=== PATIENT | male | born 1960 | race Caucasian/White ===

== ENCOUNTER → 2019-01-20 09:29 | Outpatient (CLI) | payer OTHER, SELFPAY ==
--- NOTE | 2019-01-20 09:33 | DI.RAD.S_ITS ---
PROCEDURE: XR FINGER RT MIN 2V INDICATIONS: finger injury TECHNIQUE: AP hand, 2 views of the second finger(s) acquired. COMPARISON: [facility], , HAND 3V RIGHT, 07/25/2011, 10:26. FINDINGS: Bones: No fractures or dislocations. No suspicious bony lesions. Background osteoarthritic changes. Soft tissues: No suspicious soft tissue calcifications. IMPRESSION: No acute fracture. No osseous lesion. If clinical suspicion and/or symptoms persist, further assessment with repeat plain films, or advanced imaging (e.g., CT, MRI, or bone scan) may be helpful for further assessment. Dictated by: Diego Little [facility] Interpreted: Carlie Alejandre MD on 01/20/2019 at 10:29 Approved by: Carlie Alejandre M.D. on 01/20/2019 at 14:45
== END ==
PROVIDERS: PCP Internal Medicine; Visit Provider Hospitalist
DX: S69.91XA Unspecified injury of right wrist, hand and finger(s), initial encounter (principal); X58.XXXA Exposure to other specified factors, initial encounter
CPT/HCPCS: 73140

== ENCOUNTER → 2019-08-22 15:30 | Outpatient (CLI) | payer OTHER, SELFPAY ==
--- NOTE | 2019-08-22 15:32 | DI.RAD.S_ITS ---
PROCEDURE: XR SHOULDER LT MIN 2V INDICATIONS: Left shoulder pain r/o fracture and dislocation TECHNIQUE: 3 views of the shoulder were acquired. COMPARISON: [facility], , CHEST 2 VIEW, 01/26/2013, 8:23. FINDINGS: Bones: No acute fractures or dislocations. There is a long healed mid shaft left clavicular fracture and moderately severe a.c. joint osteoarthritis. No suspicious bony lesions. Visualized ribs appear intact. Soft tissues: No suspicious soft tissue calcifications. IMPRESSION: Old trauma the mid shaft of the left clavicle, with nearby moderately severe a.c. joint osteoarthritis perhaps posttraumatic in origin. No acute trauma found. Dictated by: Fawad Edwards M.D. on 08/22/2019 at 15:57 Approved by: Fawad Edwards M.D. on 08/22/2019 at 15:57
== END ==
PROVIDERS: PCP Internal Medicine; Visit Provider Nurse Practitioner
DX: M25.512 Pain in left shoulder (principal); M19.012 Primary osteoarthritis, left shoulder
CPT/HCPCS: 73030

== ENCOUNTER 2019-08-23 20:28 | Emergency (ER) | payer OTHER, SELFPAY ==
--- NOTE | 2019-08-23 20:32 | ED_ITS ---
HPI - General Adult General Chief complaint: Abdominal Pain Stated complaint: stomach pains Time Seen by Provider: 08/23/19 20:32 Source: patient Mode of arrival: Ambulatory Limitations: no limitations History of Present Illness HPI narrative: 59-year-old male here for evaluation of right lower quadrant abdominal pain. Patient states that it started approximately 2 hours prior to coming here in the emergency department. Was a fairly sudden onset. Has had no urinary symptoms. Pain did radiate down to his right testicle. Is now radiating to his right lower back. No fevers. No bowel symptoms. No prior his tory kidney stones. Had a left inguinal hernia repaired in the past but no other abdominal surgeries. No vomiting. Related Data Home Medications Medication Instructions Recorded Confirmed VITAMIN D 400 iu PO QDAY #0 07/23/11 08/22/19 Previous Rx's Medication Instructions Recorded alprazolam 1 mg tablet 1 mg PO ONCE PRN #30 tab 10/28/18 temazepam 30 mg capsule 30 mg PO HS #90 cap 10/28/18 zolpidem 10 mg tablet 10 mg PO BEDTIME PRN #90 tab 10/28/18 quetiapine 25 mg tablet 25 mg PO BEDTIME #30 tab 12/02/18 cyclobenzaprine 5 mg tablet 10 mg PO BEDTIME #14 tab 08/22/19 meloxicam 7.5 mg tablet 15 mg PO DAILY 5 Days #10 tab 08/22/19 tamsulosin [Flomax] 0.4 mg PO DAILY #14 cap 08/23/19 Allergies Allergy/AdvReac Type Severity Reaction Status Date / Time oxycodone [From OxyContin] AdvReac Severe [place] like Verified 08/22/19 14:53 he couldnt breath. sedated..... trazodone AdvReac anxiety Verified 08/22/19 14:53 Review of Systems Constitutional Constitutional: Denies fever(s) Cardiovascular Cardiovascular: Denies chest pain and Denies dyspnea Respiratory Respiratory: Denies dyspnea Gastrointestinal Gastrointestinal: Reports abdominal pain, Denies change in stool character, Denies cramping, Denies nausea and Denies vomiting Genitourinary Genitourinary: Reports genital pain, Denies dysuria, Denies flank pain and Denies urinary urgency Musculoskeletal Musculoskeletal: Denies myalgias and Denies arthralgias Integumentary/Breasts Skin/Breast: Denies lesions and Denies rash Neurologic Neurologic: Denies behavioral changes Psychiatric Psychiatric: Denies behavioral changes Hematologic/Lymphatic Hematologic/Lymphatic: Denies easy bleeding and Denies easy bruising Patient History Medical History Anxiety (Chronic) Anxiety with flying (Chronic 11/02/17) Cervical radiculopathy (Chronic 04/10/15) Cervical radiculopathy (Chronic) Chronic insomnia (Chronic) Fatigue (Chronic 09/10/15) Injury of right elbow (Chronic) Lumbar radiculopathy (Chronic 04/10/15) Spinal fracture of T3 vertebra (Chronic) Social History Smoking Status: Never smoker Smoking Status: Never smoker Exam Initial Vital Signs Initial Vital Signs: Vital Signs Temperature 97.8 F 08/23/19 20:33 Pulse Rate 66 08/23/19 20:33 Respiratory Rate 22 08/23/19 20:33 Blood Pressure 155/102 H 08/23/19 20:33 Pulse Oximetry 100 08/23/19 20:33 Const General: cooperative, comfortable and well developed Orientation: alert, awake and oriented x3 HENMT Head: normal to inspection and normocephalic Resp Effort & Inspection: normal respiratory effort Auscultation: clear to auscultation bilaterally Cardio Rate: regular rate Rhythm: regular rhythm GI Palpation: soft, No firm and tender (Right lower quadrant) Penis: normal penis Scrotum: scrotum normal Testes: normal Skin Lesions: no lesions Rashes: no rashes Neuro General: alert and awake Cognition: normal cognition Speech: speech normal Extrem General: normal to inspection and capillary refill normal Psych Appearance: grossly normal and well kempt Course Orders Ordered: ED Orders 08/23/19 20:45 Complete Blood Count AUTO DIFF Stat Comprehensive Metabolic Panel Stat Lipase Stat 08/23/19 20:47 Urine Microscopic Stat 08/23/19 20:53 CT kidney ureter bladder (KUB) Stat Discontinued Medications Lidocaine HCl 6.3 ml/ Sodium (Chloride) 56.3 mls @ 337.8 mls/hr IV NOW ONE Stop: 08/23/19 20:54 Last Infusion: 08/23/19 21:31 Dose: 0 mls/hr Documented by: Admin: 08/23/19 21:07 Dose: 337.8 mls/hr Documented by: DAVI Ketorolac Tromethamine (Toradol) 30 mg IV NOW ONE Stop: 08/23/19 20:54 Last Admin: 08/23/19 21:03 Dose: 30 mg Documented by: DAVI Vital Signs Vital signs: Vital Signs - 8 hr 08/23/19 20:33 Temperature 97.8 F Pulse Rate 66 Respiratory Rate 22 Blood Pressure 155/102 H Pulse Oximetry 100 Medical Decision Making Lab Data Result diagrams: 08/23/19 20:45 08/23/19 20:45 Labs: Lab Results 08/23/19 08/23/19 08/23/19 Range/Units 20:45 20:45 20:47 WBC 13.0 H (4.5-11.0) X10^3/uL RBC 5.45 (4.5-5.9) X10^6/uL Hgb 16.7 (13.5-17.5) g/dL Hct 49.6 (41-53) % MCV 91.0 (80-100) fL MCH 30.7 (26-34) PG MCHC 33.7 (30-36) % RDW 13.5 (11.6-14.8) % Plt Count 227 (150-400) X10^3/uL Neut % (Auto) 83.8 H (50-75) % Lymph % (Auto) 9.8 L (25-40) % [place] % (Auto) 4.9 (3-14) % Eos % (Auto) 1.0 L (2-4) % Baso % (Auto) 0.5 (0-2) % Neut # (Auto) 49194 H (4660-8811) /uL Lymph # (Auto) 1300 (8035-8475) /uL [place] # (Auto) 600 (0-900) /uL Eos # (Auto) 100 (0-450) /uL Baso # (Auto) 100 (0-100) /uL Sodium 139 (137-145) mmol/L Potassium 4.6 (3.4-5.1) mmol/L Chloride 98 (98-107) mmol/L Carbon Dioxide 31 (22-32) mmol/L BUN 24 H (9-20) mg/dL Creatinine 1.40 H (0.66-1.25) mg/dL Estimated GFR 51.5 L (>60) mL/min BUN/Creatinine Ratio 17.1 (6-22) Glucose 133 H (80-110) mg/dL Calcium 9.5 (8.4-10.2) mg/dL Total Bilirubin 0.6 (0.2-1.3) mg/dL AST 25 (17-59) IU/L ALT 26 (<50) IU/L Alkaline Phosphatase 86 (38-126) U/L Total Protein 7.6 (6.3-8.2) g/dL Albumin 4.8 (3.5-5.0) g/dL Globulin 2.8 (1.7-4.1) g/dL Albumin/Globulin Ratio 1.7 (1.0-2.8) Lipase 143 (23-300) U/L Urine RBC 10-30/hpf H (0-5/HPF) Urine WBC 0-1/hpf (0-5/HPF) Ur Squamous Epith Cells 0-1 /hpf (0-5/HPF) Amorphous Sediment 2+ Urine Bacteria Few (2-10) H (None) Ur Culture Indicated? Cult not indicated Urine Dip Bedside Urine Glucose Negative Bedside Urine Bilirubin - Negative Bedside Urine Ketone - Negative Urine Specific [place] 1.010 Bedside Urine Occult Blood - Negative Bedside Urine pH 8.5 Bedside Urine Protein +/- 15 Bedside Urine Urobilinogen - Negative Bedside Urine Nitrite - Negative Bedside Urine Leukocytes - Negative Esterase Point of care testing: Urine Dip Bedside Urine Glucose Negative Bedside Urine Bilirubin - Negative Bedside Urine Ketone - Negative Urine Specific [place] 1.010 Bedside Urine Occult Blood - Negative Bedside Urine pH 8.5 Bedside Urine Protein +/- 15 Bedside Urine Urobilinogen - Negative Bedside Urine Nitrite - Negative Bedside Urine Leukocytes - Negative Esterase Imaging Data CT scan - abdomen/pelvis: Radiologist's Impression: [address] [address] [address] Scan Report Signed Patient: Baltazar Carlson EMR#: [id number] : 8Acct:[id number] Age/Sex: 59 / MDate of Service: 08/23/19 Loc: ED Accession Number: [id number] Procedure: CT kidney ureter bladder (KUB) Ordering Provider: Robb Alvarenga D.O. PROCEDURE: CT KIDNEY URETER BLADDER (KUB) INDICATIONS: RLQ ABD pain eval for stone TECHNIQUE: Noncontrast 5 mm thick sections acquired from the diaphragms to the symphysis. 5 mm thick coronal and sagittal reformats were then performed. For radiation dose reduction, the following was used: automated exposure control, adjustment of mA and/or kV according to patient size. COMPARISON: None. FINDINGS: Image quality: Excellent. Lung bases: Lung bases are clear. Heart size is normal. Urinary system: Both kidneys are normal in size. No kidney stones. Mild right hydronephrosis. No left hydronephrosis or perinephric fat stranding. Both ureters appear non-dilated throughout their expected courses. There is a 4 mm diameter distal right ureteral calculus with Hounsfield units of 349. Urinary bladder is decompressed. Other solid organs: Liver is normal in size. Gallbladder is within normal limits. Pancreas is normal in contours. Spleen is normal in size. No adrenal nodules. Peritoneum and bowel: Small hiatal hernia. Unenhanced bowel loops demonstrate normal wall thickness and caliber. No free fluid or air. Normal appendix. Nodes and vessels: No retroperitoneal or mesenteric adenopathy by size crit eria. Aorta and inferior vena cava are normal in caliber. Abdominal wall: No ventral hernias. Pelvis: No free pelvic fluid. No inguinal hernias or adenopathy. Bones: No suspicious bony lesions. No vertebral body compression fractures. IMPRESSION: 1. Distal right ureteral calculus causing mild right hydronephrosis. 2. Normal appendix. 3. Small hiatal hernia. Dictated by: Herb Herring M.D. on 08/23/2019 at 21:16 Approved by: Herb Herring M.D. on 08/23/2019 at 21:18 MDM Narrative Medical decision making narrative: CT shows 4 mm right-sided ureteral stone. This does correspond to his history and physical exam. Does have a leukocytosis but I suspect that this is secondary to stress/demargination from the pain that he is having. He has no signs of an infection. Urinalysis shows no signs of i nfection. Does have a slight increase in his creatinine any decrease in his GFR. I suspect this is from the stone as well. Has an improvement of his symptoms after medications. Patient would like to avoid any opioid medications secondary to an allergic reaction that he had pain medication in the past. No indication for emergent urologic consultation. No indication for antibiotics. Will send home with prescription for Zofran. He will take anti-inflammatories. We did discuss that this should only be further very short term given his kidney function and that he should have his kidney function recheck after the kidney stone passes. Will also send home with Flomax. He does have a history of prostate issues. He is currently not on Flomax. He was given return precautions and follow-up instructions. He expressed understanding and agreement plan improved Discharge Plan Departure Patient Disposition: Home Clinical Impression: Kidney stone on right side Instructions: DI for Kidney Stones Activity Restrictions/Additional Instructions: Take all your medications as directed. Be sure to stay hydrated. Contact your primary provider for follow-up for recheck of your kidney function after you passed the stone. Return to the emergency department for any new or worsening symptoms Prescriptions: New tamsulosin [Flomax] 0.4 mg capsule 0.4 mg PO DAILY Qty: 14 RF: 0 No Action cyclobenzaprine 5 mg tablet 10 mg PO BEDTIME Qty: 14 RF: 0 meloxicam 7.5 mg tablet 15 mg PO DAILY 5 Days Qty: 10 RF: 0 VITAMIN D 400 iu PO QDAY Qty: 0 RF: 0 zolpidem 10 mg tablet 10 mg PO BEDTIME PRN (Reason: insomnia) Qty: 90 RF: 0 temazepam 30 mg capsule 30 mg PO HS Qty: 90 RF: 0 alprazolam [Xanax] 1 mg tablet 1 mg PO ONCE PRN (Reason: anxiety) Qty: 30 RF: 0 quetiapine 25 mg tablet 25 mg PO BEDTIME Qty: 30 RF: 3 Referrals: Osmar Khoury MD [Primary Care Provider] -
[2019-08-23 20:33] VITALS: BP 155/102; PULSE 66; RESP 22; TEMP 36.6; O2SAT 100
--- NOTE | 2019-08-23 20:53 | DI.CT.S_ITS ---
PROCEDURE: CT KIDNEY URETER BLADDER (KUB) INDICATIONS: RLQ ABD pain eval for stone TECHNIQUE: Noncontrast 5 mm thick sections acquired from the diaphragms to the symphysis. 5 mm thick coronal and sagittal reformats were then performed. For radiation dose reduction, the following was used: automated exposure control, adjustment of mA and/or kV according to patient size. COMPARISON: None. FINDINGS: Image quality: Excellent. Lung bases: Lung bases are clear. Heart size is normal. Urinary system: Both kidneys are normal in size. No kidney stones. Mild right hydronephrosis. No left hydronephrosis or perinephric fat stranding. Both ureters appear non-dilated throughout their expected courses. There is a 4 mm diameter distal right ureteral calculus with Hounsfield units of 349. Urinary bladder is decompressed. Other solid organs: Liver is normal in size. Gallbladder is within normal limits. Pancreas is normal in contours. Spleen is normal in size. No adrenal nodules. Peritoneum and bowel: Small hiatal hernia. Unenhanced bowel loops demonstrate normal wall thickness and caliber. No free fluid or air. Normal appendix. Nodes and vessels: No retroperitoneal or mesenteric adenopathy by size criteria. Aorta and inferior vena cava are normal in caliber. Abdominal wall: No ventral hernias. Pelvis: No free pelvic fluid. No inguinal hernias or adenopathy. Bones: No suspicious bony lesions. No vertebral body compression fractures. IMPRESSION: 1. Distal right ureteral calculus causing mild right hydronephrosis. 2. Normal appendix. 3. Small hiatal hernia. Dictated by: Herb Herring M.D. on 08/23/2019 at 21:16 Approved by: Herb Herring M.D. on 08/23/2019 at 21:18
[2019-08-23 20:57] LABS: Add Manual Diff / Slide Review NO; Basophils Absolute Auto 100 /uL (0-100); Basophils Percent Auto 0.5 % (0-2); Eosinophils Absolute Auto 100 /uL (0-450); Hematocrit 49.6 % (41-53); Hemoglobin 16.7 g/dL (13.5-17.5); Lymphocytes Absolute Auto 1300 /uL (1100-4500); Lymphocytes Percent Auto 9.8 % (25-40); Mean Corpuscular HGB Conc 33.7 % (30-36); Mean Corpuscular Hemoglobin 30.7 PG (26-34); Monocytes Absolute Auto 600 /uL (0-900); Monocytes Percent Auto 4.9 % (3-14); Neutrophils Absolute Auto 10900 /uL (1500-7000); Neutrophils Percent Auto 83.8 % (50-75); Platelet Count 227 X10^3/uL (150-400); Red Blood Cell Count 5.45 X10^6/uL (4.5-5.9); Red Cell Distribution Width 13.5 % (11.6-14.8)
[2019-08-23 20:58] LABS: Amorphous Sediment Urine 2+; Bacteria Urine Few (2-10); Culture Indicated Urine Cult Not Indicated; RBC Urine 10-30/HPF (0-5/HPF); Squamous Epithelial Cell Urine 0-1 /HPF (0-5/HPF); WBC Urine 0-1/HPF (0-5/HPF)
--- NOTE | 2019-08-23 20:59 | PC.NURSE ---
Pt had 2+ Blood on their POC. I mistakenly Marked Negative for the blood in the POC Documented. Urine was sent to Lab.
[2019-08-23 21:02] LABS: Alanine Aminotransferase 26 IU/L (<50); Albumin 4.8 g/dL (3.5-5.0); Albumin Globulin Ratio 1.7 (1.0-2.8); Alkaline Phosphatase 86 U/L (38-126); Aspartate Aminotransferase 25 IU/L (17-59); BUN Creatinine Ratio 17.1 (6-22); Bilirubin Total 0.6 mg/dL (0.2-1.3); Blood Urea Nitrogen 24 mg/dL (9-20); Calcium 9.5 mg/dL (8.4-10.2); Carbon Dioxide 31 mmol/L (22-32); Chloride 98 mmol/L (98-107); Estimated Glomerular Filt Rate 51.5 mL/min (>60); Globulin 2.8 g/dL (1.7-4.1); Glucose 133 mg/dL (80-110); HEMOLYSIS 20 (0-50); Lipase 143 U/L (23-300); Potassium 4.6 mmol/L (3.4-5.1); Sodium 139 mmol/L (137-145); Total Protein 7.6 g/dL (6.3-8.2)
[2019-08-23] MEDS: KETOROLAC 60 MG/2 ML VIAL 30 MG IV (21:03)
[2019-08-23] MEDS: LIDOCAINE 2% 6.3 ML in SODIUM CHLORIDE 0.9% 50 ML 337.8 ML IV (21:07)
[2019-08-23 22:07] VITALS: BP 146/69; PULSE 79; RESP 18; O2SAT 97
[2019-08-23] MEDS: ONDANSETRON 4 MG ODT PREPACK 1 BOTTLE MISC (22:14)
== END 2019-08-23 22:16 | disposition home or self-care (01) ==
PROVIDERS: Emergency Provider Emergency Medicine; Family Provider Internal Medicine; PCP Internal Medicine
DX: N20.0 Calculus of kidney (principal)
CPT/HCPCS: 36415; 74176; 80053; 81003; 81015; 83690; 85025; 96365; 96375; 99284; J1885

== ENCOUNTER → 2019-09-27 07:09 | Outpatient (CLI) | payer OTHER, SELFPAY ==
[2019-09-27 09:02] LABS: BUN Creatinine Ratio 20.8 (6-22); Blood Urea Nitrogen 25 mg/dL (9-20); Calcium 9.3 mg/dL (8.4-10.2); Carbon Dioxide 29 mmol/L (22-32); Chloride 102 mmol/L (98-107); Cholesterol 211 mg/dL (140-199); Estimated Glomerular Filt Rate > 60.0 mL/min (>60); Glucose 97 mg/dL (80-110); HDL Cholesterol 41 mg/dL (40-60); HEMOLYSIS < 15 (0-50); LDL Cholesterol Calculated 152 mg/dL (<100); Potassium 4.3 mmol/L (3.4-5.1); Sodium 139 mmol/L (137-145); Triglycerides 90 mg/dL (35-150)
[2019-09-27 09:32] LABS: Prostate Specific Antigen Scrn 1.64 ng/mL (0.1-4.0)
== END ==
PROVIDERS: Family Provider Internal Medicine; PCP Internal Medicine; Referring Provider Internal Medicine; Visit Provider Internal Medicine
DX: Z12.5 Encounter for screening for malignant neoplasm of prostate (principal); Z13.1 Encounter for screening for diabetes mellitus; Z13.220 Encounter for screening for lipoid disorders; Z13.6 Encounter for screening for cardiovascular disorders; Z87.442 Personal history of urinary calculi
CPT/HCPCS: 36415; 80048; 80061; G0103